=== PATIENT | female | born 1990 | race African-American/Black ===

== ENCOUNTER 2024-10-23 08:35 | Emergency (ER) | payer OTHER ==
[~2024-10-23] VITALS: Ht 175.3 cm; Wt 77.3 kg
[2024-10-23 08:43] VITALS: BP 123/84; PULSE 66; RESP 18; TEMP 97.9; O2SAT 98
== END 2024-10-23 09:38 | disposition home or self-care (01) ==
LOC: EMS 08:35
DX: S70.11XA Contusion of right thigh, initial encounter (principal); F12.90 Cannabis use, unspecified, uncomplicated; X58.XXXA Exposure to other specified factors, initial encounter; Y93.89 Activity, other specified; Y92.89 Other specified places as the place of occurrence of the external cause; Y99.8 Other external cause status
CPT/HCPCS: 99282; Z7502

== ENCOUNTER 2025-05-14 17:50 | Emergency (ER) | payer OTHER ==
[~2025-05-14] VITALS: Ht 175.3 cm; Wt 77.3 kg
[2025-05-14 18:03] VITALS: BP 131/78; PULSE 77; RESP 18; TEMP 98.1; O2SAT 99
[2025-05-14] MEDS: IBUPROFEN 600 MG TABLET PO ONE (19:08)
[2025-05-14] MEDS: LIDOCAINE 5% TRANSDERMAL PATCH TD ONE (19:15)
[2025-05-14] MEDS ORDERED: DICL100G60 TP (19:16)
[2025-05-14] MEDS ORDERED: IBUP-1492 PO (22:16)
== END 2025-05-14 23:19 | disposition home or self-care (01) ==
LOC: EMS 17:50
DX: S43.101A Unspecified dislocation of right acromioclavicular joint, initial encounter (principal); F12.90 Cannabis use, unspecified, uncomplicated; Z98.890 Other specified postprocedural states; V43.52XA Car driver injured in collision with other type car in traffic accident, initial encounter; Y93.89 Activity, other specified; Y92.410 Unspecified street and highway as the place of occurrence of the external cause; Y99.8 Other external cause status
CPT/HCPCS: 73502; 99284